=== PATIENT | female | born 2000 | race Caucasian/White ===

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

== ENCOUNTER 2019-10-26 18:40 | Emergency (ER) | payer BC, OTHER ==
[~2019-10-26] VITALS: Ht 160 cm; Wt 46.9 kg
[2019-10-26] MEDS ORDERED: NS 1,000 ML IV ONE (19:30)
[2019-10-26 20:33] LABS: BASO % 0.4 % (0.0-1.0); BLOOD UREA NITROGEN 9 MG/DL (7-18); CALCIUM LEVEL 8.7 MG/DL (8.5-10.1); CARBON DIOXIDE LEVEL 28 MEQ/L (21-32); CHLORIDE LEVEL 110 MEQ/L (98-107); CK-MB VALUE MASS < 1.0 NG/ML (<3.6); CPK CREATINE PHOSPHOKINASE 84 U/L (26-192); CREATININE FOR GFR 0.61 MG/DL (0.55-1.30); EOS # 0.1 10^3/uL (0.0-0.5); EOS % 1.6 % (0.0-3.0); GLUCOSE, FASTING 91 MG/DL (70-100); HEMATOCRIT 41.5 % (36.0-47.0); HEMOGLOBIN 13.5 g/dl (12.0-15.5); LYMPH # 2.3 10^3/uL (1.5-5.0); LYMPH % 30.9 % (24.0-44.0); MB/CK RELATIVE INDEX 1.19 (< OR =4); MEAN CORPUSCULAR HEMOGLOBIN 29.5 pg (27.0-33.0); MEAN CORPUSCULAR HGB CONC 32.5 g/dl (32.0-36.5); MEAN CORPUSCULAR VOLUME 90.8 fl (80.0-96.0); MONO # 0.7 10^3/uL (0.0-0.8); MONO % 8.6 % (0.0-5.0); NEUTROPHILS # 4.4 10^3/uL (1.5-8.5); NEUTROPHILS % 58.4 % (36.0-66.0); PLATELET COUNT, AUTOMATED 263 10^3/uL (150-450); POTASSIUM SERUM 3.7 MEQ/L (3.5-5.1); RED BLOOD COUNT 4.57 10^6/uL (4.00-5.40); SODIUM LEVEL 142 MEQ/L (136-145); TROPONIN I < 0.02 NG/ML (< 0.10); WHITE BLOOD COUNT 7.6 10^3/uL (4.0-10.0)
[2019-10-26 21:44] VITALS: BP 126/74
--- NOTE | 2019-10-27 18:41 | ECGEPIP ---
[facility] - ED Test Date: 2019-10-26 Pat Name: MOHTI ROMERO Department: Room: - Gender: Female Registered Dietitian: : 2000 Requested By: Julia Nova Order Number: [id number] Reading MD: Julia Nova Measurements Intervals [place] Rate: 97 P: 43 TX: 116 QRS: 71 QRSD: 94 T: 39 QT: 343 QTc: 436 Interpretive Statements SINUS RHYTHM WITH SHORT TX INTERVAL MODERATE ST DEPRESSION COMPARED 05/10/18 Electronically Signed on 10-27-2019 18:40:47 EDT by Julia Nova
== END 2019-10-26 21:53 | disposition home or self-care (01) ==
LOC: M ED 18:40
DX: R00.2 Palpitations (principal); K21.9 Gastro-esophageal reflux disease without esophagitis; F41.9 Anxiety disorder, unspecified